=== PATIENT | female | born 1950 | race Caucasian/White ===

== ENCOUNTER 2022-07-03 17:28 | Emergency (ER) | payer MEDICARE, MEDICAID ==
[~2022-07-03] VITALS: Ht 162.6 cm; Wt 81.8 kg
[2022-07-03 17:52] VITALS: BP 162/96
[2022-07-03] MEDS ORDERED: CYCL-1 PO ×3 (18:50→19:50)
[2022-07-03] MEDS ORDERED: IBUP-1986 PO ×3 (18:50→19:50)
[2022-07-03] MEDS ORDERED: cyclobenzaprine 10mg tablet PO ONE (19:20)
[2022-07-03] MEDS ORDERED: HYDROcodone/acetaminophen 10/325mg tab PO ONE (19:20)
== END 2022-07-03 19:56 | disposition home or self-care (01) ==
LOC: ER 17:28
DX: Z04.3 Encounter for examination and observation following other accident (principal); V43.52XA Car driver injured in collision with other type car in traffic accident, initial encounter; Y93.89 Activity, other specified; Y92.89 Other specified places as the place of occurrence of the external cause; Y99.8 Other external cause status
CPT/HCPCS: 73030; 73080; 73610; 99284